=== PATIENT | female | born 1950 | race Caucasian/White ===

== ENCOUNTER → 2016-09-19 | Outpatient (CLI) | payer OTHER ==
--- NOTE | 2016-09-19 14:54 | DX ---
Left Wrist, 4 views including a navicular view History: Pain post trauma. Slipped on ice. Findings: No fracture or dislocation is identified. 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 The navicular is intact. Impression: Nothing acute identified.
== END ==
LOC: CIMAGING 14:25
PROVIDERS: ATTEND Emergency Medicine
DX: M25.532 Pain in left wrist (principal)
CPT/HCPCS: 73110-PO

== ENCOUNTER → 2017-06-16 | Outpatient (CLI) | payer OTHER | LOC: FIMAGING 15:05 | PROVIDERS: ATTEND Physical Medicine & Rehabilitation | DX: M46.96 Unspecified inflammatory spondylopathy, lumbar region (principal); M48.062 Spinal stenosis, lumbar region with neurogenic claudication; M51.26 Other intervertebral disc displacement, lumbar region; N28.89 Other specified disorders of kidney and ureter ==

== ENCOUNTER → 2017-08-14 | Outpatient (CLI) | payer OTHER ==
[~2017-08-14] MED LIST: IOPAMIDOL (ISOVUE-300) 100 ML BTL ONE
== END ==
LOC: CIMAGING 18:24
PROVIDERS: ATTEND Family Medicine
DX: N28.89 Other specified disorders of kidney and ureter (principal); R91.8 Other nonspecific abnormal finding of lung field; M51.36 Other intervertebral disc degeneration, lumbar region; M43.16 Spondylolisthesis, lumbar region
CPT/HCPCS: 74170-PO; Q9967

== ENCOUNTER → 2018-06-23 | Outpatient (CLI) | payer OTHER | LOC: CIMAGING 08:08 | PROVIDERS: ATTEND Family Medicine | DX: Z12.31 Encounter for screening mammogram for malignant neoplasm of breast (principal) ==

== ENCOUNTER → 2018-10-06 | Outpatient (CLI) | payer OTHER | LOC: CIMAGING 14:22 | PROVIDERS: ATTEND Family Medicine | DX: R91.1 Solitary pulmonary nodule (principal) | CPT/HCPCS: 71250-PO ==

== ENCOUNTER 2019-02-02 05:54 | Day surgery (SDC) | payer OTHER | END 2019-02-02 11:48 | disposition home or self-care (01) | LOC: FSGY 05:54 ==